=== PATIENT | male | born 1960 | race African-American/Black ===

== ENCOUNTER 2018-04-08 11:58 | Inpatient (IN) | payer MEDICAID ==
[~2018-04-08] VITALS: Ht 195.6 cm; Wt 89.8 kg
[2018-04-08] MEDS ORDERED: ONDANSETRON HCL 4MG/2ML INJ IV STA (12:13)
[2018-04-08] MEDS ORDERED: MORPHINE SULFATE 4 MG/ML CPJ (NOT FOR IM USE) IV STA (12:13)
[2018-04-08 13:25] LABS: MEAN CORPUSCULAR HEMOGLOBIN 30.4 pg (28.0-32.0); MEAN CORPUSCULAR VOLUME 91.3 fL (80.0-94.0); MEAN PLATELET VOLUME 7.6 fl (7.4-10.4); PLATELET 340 x1000/uL (130-400); RED BLOOD CELL COUNT 4.92 mill/uL (4.7-6.1); RED CELL DISTRIBUTION WIDTH 14.2 % (11.6-14.6)
[2018-04-08 13:32] LABS: CHLORIDE 101 mEq/L (98-107)
[2018-04-08 13:33] LABS: PROTHROMBIN TIME 9.9 sec (9.1-11.1)
[2018-04-08 14:13] LABS: PLATELET ESTIMATE NORMAL
[2018-04-08 14:30] LABS: CLARITY URINE CLOUDY (CLEAR); COLOR URINE YELLOW (YELLOW); KETONES URINE NEGATIVE (NEGATIVE); LEUKOCYTE ESTERASE URINE NEGATIVE (NEGATIVE); NITRITE URINE NEGATIVE (NEGATIVE); OCCULT BLOOD URINE 1+ (NEGATIVE); PROTEIN URINE 1+ (NEGATIVE); SPECIFIC GRAVITY URINE 1.021 (1.005-1.030); UROBILINOGEN URINE 0.2 E.U./dL (0.2-1.0)
[2018-04-08] MEDS ORDERED: KETOROLAC 30MG/ML VIAL IV NR (15:45)
[2018-04-08 21:00] VITALS: BP 147/91
[2018-04-08] MEDS ORDERED: BISACODYL 10MG SUPP PR PRN (21:30)
[2018-04-08] MEDS ORDERED: HYDROMORPHONE HCL/PF 2MG/ML CPJ IV PRN (21:30)
[2018-04-08] MEDS ORDERED: ACETAMINOPHEN 325MG TABLET PO PRN (21:30)
[2018-04-08] MEDS ORDERED: BISACODYL 10MG SUPP PR NR (21:30)
[2018-04-08] MEDS ORDERED: ONDANSETRON HCL 4MG/2ML INJ IV PRN (21:45)
[2018-04-08] MEDS ORDERED: MORPHINE SULFATE 2 MG/ML CPJ (NOT FOR IM USE) IV PRN (21:45)
[2018-04-08] MEDS: ONDANSETRON HCL 4MG/2ML INJ IV PRN (22:07)
[2018-04-08] MEDS: HYDROMORPHONE HCL/PF 2MG/ML CPJ IV PRN (22:07)
[2018-04-08] MEDS: PANTOPRAZOLE SODIUM 40 MG/VIAL IV SCH (22:57)
[2018-04-08] MEDS ORDERED: NA PHOS,M-B/NA PHOS,DI-BA ENEMA 118ML PR NR (23:00)
[2018-04-08] MEDS: DEXT 5%/0.9% NACL 1,000 ML IV SCH (23:11)
[2018-04-08] MEDS: LEVOFLOXACIN 500MG PREMIX 100 ML IV SCH (23:12)
[2018-04-08] MEDS ORDERED: DEXT 5%/0.45% NACL KCL 20MEQ/L 1,000 ML IV SCH (23:30)
[2018-04-09] VITALS: BP 136/86
[2018-04-09] MEDS: PIPERACILLIN/TAZ 3.375G PREMIX 50 ML IV SCH ×3 (00:28→16:42)
[2018-04-09] MEDS ORDERED: ASPI-1159 PO (00:34)
[2018-04-09 04:00] VITALS: BP 121/78
[2018-04-09] MEDS: HYDROMORPHONE HCL/PF 2MG/ML CPJ IV PRN ×3 (04:55→19:33)
[2018-04-09 06:22] LABS: BASOPHILS % 0.3 % (0.0-2.0); EOSINOPHILS % 0.9 % (0.0-5.0); HEMATOCRIT. 42.6 % (42.0-52.0); LYMPHOCYTES % 9.8 % (20.0-50.0); MEAN CORPUSCULAR HEMOGLOBIN 30.2 pg (28.0-32.0); MEAN CORPUSCULAR VOLUME 91.7 fL (80.0-94.0); MEAN PLATELET VOLUME 7.3 fl (7.4-10.4); MONOCYTES % 12.2 % (2.0-8.0); NEUTROPHILS % 76.8 % (40.0-76.0); PLATELET 361 x1000/uL (130-400); RED BLOOD CELL COUNT 4.65 mill/uL (4.7-6.1); RED CELL DISTRIBUTION WIDTH 14.2 % (11.6-14.6)
[2018-04-09 06:33] LABS: CHLORIDE 100 mEq/L (98-107)
[2018-04-09 08:00] VITALS: BP 112/69
[2018-04-09] MEDS: PANTOPRAZOLE SODIUM 40 MG/VIAL IV SCH (08:33)
[2018-04-09] MEDS: ENOXAPARIN 40MG/0.4ML SYR SUBCUT SCH (08:37)
[2018-04-09 12:00] VITALS: BP 122/69
[2018-04-09] MEDS ORDERED: NA PHOS,M-B/NA PHOS,DI-BA ENEMA 118ML PR NR (15:45)
[2018-04-09 16:00] VITALS: BP 119/78
[2018-04-09] MEDS: DEXT 5%/0.9% NACL 1,000 ML IV SCH (16:45)
[2018-04-09 19:31] VITALS: BP 130/93
[2018-04-10] VITALS: BP 128/87
[2018-04-10] MEDS: PIPERACILLIN/TAZ 3.375G PREMIX 50 ML IV SCH ×3 (00:18→18:34)
[2018-04-10] MEDS: HYDROMORPHONE HCL/PF 2MG/ML CPJ IV PRN ×4 (00:29→22:35)
[2018-04-10] MEDS: LEVOFLOXACIN 500MG PREMIX 100 ML IV SCH (01:27)
[2018-04-10 04:00] VITALS: BP 128/80
[2018-04-10] MEDS: DEXT 5%/0.9% NACL 1,000 ML IV SCH ×2 (07:05→15:39)
[2018-04-10 08:21] LABS: BASOPHILS % 0.4 % (0.0-2.0); HEMATOCRIT. 42.3 % (42.0-52.0); HEMOGLOBIN. 13.9 g/dL (14.0-18.0); LYMPHOCYTES % 10.3 % (20.0-50.0); MEAN CORPUSCULAR HEMOGLOBIN 30.4 pg (28.0-32.0); MEAN CORPUSCULAR VOLUME 92.2 fL (80.0-94.0); MEAN PLATELET VOLUME 7.6 fl (7.4-10.4); NEUTROPHILS % 75.3 % (40.0-76.0); PLATELET 350 x1000/uL (130-400); RED BLOOD CELL COUNT 4.58 mill/uL (4.7-6.1); RED CELL DISTRIBUTION WIDTH 14.2 % (11.6-14.6)
[2018-04-10 09:28] LABS: CHLORIDE 102 mEq/L (98-107)
[2018-04-10] MEDS: PANTOPRAZOLE SODIUM 40 MG/VIAL IV SCH ×2 (09:32→18:35)
[2018-04-10] MEDS: ENOXAPARIN 40MG/0.4ML SYR SUBCUT SCH (09:34)
[2018-04-10 10:45] VITALS: BP 124/65
[2018-04-10] MEDS ORDERED: NA PHOS,M-B/NA PHOS,DI-BA ENEMA 118ML PR NR (18:00)
[2018-04-10 18:36] LABS: HEMATOCRIT 38.8 % (42.0-52.0)
[2018-04-10 20:00] VITALS: BP 134/79
[2018-04-10 20:13] LABS: INR 1.1; PARTIAL THROMBOPLASTIN TIME 32.1 sec (23.4-31.0); PROTHROMBIN TIME 11.1 sec (9.1-11.1)
[2018-04-10 21:09] LABS: HEMATOCRIT 40.1 % (42.0-52.0); HEMOGLOBIN 13.4 g/dL (14.0-18.0)
[2018-04-10] MEDS: ONDANSETRON HCL 4MG/2ML INJ IV PRN (22:34)
[2018-04-11] VITALS (7 sets, daily range): BP systolic 118–174; BP diastolic 70–99
[2018-04-11] MEDS: PIPERACILLIN/TAZ 3.375G PREMIX 50 ML IV SCH ×4 (01:01→23:47)
[2018-04-11] MEDS: LEVOFLOXACIN 500MG PREMIX 100 ML IV SCH (01:07)
[2018-04-11] MEDS: ONDANSETRON HCL 4MG/2ML INJ IV PRN (06:36)
[2018-04-11] MEDS: HYDROMORPHONE HCL/PF 2MG/ML CPJ IV PRN ×2 (06:37→23:54)
[2018-04-11] MEDS: DEXT 5%/0.9% NACL 1,000 ML IV SCH (06:38)
[2018-04-11 07:32] LABS: HEMATOCRIT 36.7 % (42.0-52.0); HEMOGLOBIN 12.3 g/dL (14.0-18.0); MEAN CORPUSCULAR HEMOGLOBIN 30.7 pg (28.0-32.0); MEAN CORPUSCULAR VOLUME 91.4 fL (80.0-94.0); PLATELET 316 x1000/uL (130-400); RED BLOOD CELL COUNT 4.02 mill/uL (4.7-6.1); RED CELL DISTRIBUTION WIDTH 13.9 % (11.6-14.6)
[2018-04-11 07:49] LABS: CHLORIDE 107 mEq/L (98-107)
[2018-04-11] MEDS: PANTOPRAZOLE SODIUM 40 MG/VIAL IV SCH ×2 (09:22→17:25)
[2018-04-12] MEDS: LEVOFLOXACIN 500MG PREMIX 100 ML IV SCH ×2 (00:32→23:20)
[2018-04-12 04:00] VITALS: BP 137/89
[2018-04-12 07:44] LABS: HEMATOCRIT 35.2 % (42.0-52.0); HEMOGLOBIN 11.8 g/dL (14.0-18.0); MEAN CORPUSCULAR HEMOGLOBIN 30.7 pg (28.0-32.0); MEAN CORPUSCULAR VOLUME 91.2 fL (80.0-94.0); PLATELET 320 x1000/uL (130-400); RED BLOOD CELL COUNT 3.86 mill/uL (4.7-6.1); RED CELL DISTRIBUTION WIDTH 13.6 % (11.6-14.6)
[2018-04-12 08:00] VITALS: BP 156/77
[2018-04-12] MEDS: PIPERACILLIN/TAZ 3.375G PREMIX 50 ML IV SCH ×3 (08:00→23:20)
[2018-04-12 08:02] LABS: CHLORIDE 106 mEq/L (98-107)
[2018-04-12] MEDS: PANTOPRAZOLE SODIUM 40 MG/VIAL IV SCH ×2 (09:00→19:40)
[2018-04-12] MEDS: DEXT 5%/0.9% NACL 1,000 ML IV SCH ×2 (09:05→23:28)
[2018-04-12] MEDS ORDERED: DIATR MEGLU/DIATRIZOATE SOLN 120ML ONE (09:17)
[2018-04-12 12:00] VITALS: BP 137/73
[2018-04-12 16:00] VITALS: BP 153/95
[2018-04-12 20:00] VITALS: BP 120/69
[2018-04-12] MEDS ORDERED: HYDRALAZINE 20MG/ML VIAL IV PRN (20:15)
[2018-04-12] MEDS ORDERED: DIPHENHYDRAMINE 50MG/ML VIAL IV PRN (20:15)
[2018-04-12] MEDS ORDERED: HYDROMORPHONE HCL/PF 2MG/ML CPJ IV PRN (21:48)
[2018-04-13 00:13] VITALS: BP 135/67
[2018-04-13 04:00] VITALS: BP 148/71
[2018-04-13 08:00] VITALS: BP 150/84
[2018-04-13 09:12] LABS: HEMATOCRIT 37.6 % (42.0-52.0); HEMOGLOBIN 12.3 g/dL (14.0-18.0); MEAN CORPUSCULAR HEMOGLOBIN 30.1 pg (28.0-32.0); MEAN CORPUSCULAR VOLUME 91.7 fL (80.0-94.0); PLATELET 336 x1000/uL (130-400); RED CELL DISTRIBUTION WIDTH 13.8 % (11.6-14.6)
[2018-04-13 09:20] LABS: CHLORIDE 104 mEq/L (98-107)
[2018-04-13] MEDS: PANTOPRAZOLE SODIUM 40 MG/VIAL IV SCH ×2 (10:42→17:00)
[2018-04-13] MEDS: PIPERACILLIN/TAZ 3.375G PREMIX 50 ML IV SCH ×2 (10:42→16:00)
[2018-04-13 12:00] VITALS: BP 123/77
[2018-04-13 16:00] VITALS: BP 127/72
[2018-04-13] MEDS: DEXT 5%/0.9% NACL 1,000 ML IV SCH (18:25)
[2018-04-13 19:55] VITALS: BP 142/84
== END 2018-04-13 20:57 | disposition home or self-care (01) | DRG 252 ==
LOC: ER 11:58 → 7WST 13:29 → ENRESERV 19:40
PROVIDERS: ADMIT Internal Medicine; ATTEND Internal Medicine
PROC: 0D9670Z Drainage of Stomach with Drainage Device, Via Natural or Artificial Opening (ICD-10-PCS; principal; 2018-04-09)
DX: K91.30 Postprocedural intestinal obstruction, unspecified as to partial versus complete (principal); K29.61 Other gastritis with bleeding; E44.1 Mild protein-calorie malnutrition; I10 Essential (primary) hypertension; J44.9 Chronic obstructive pulmonary disease, unspecified; D72.829 Elevated white blood cell count, unspecified; F17.210 Nicotine dependence, cigarettes, uncomplicated; Z79.82 Long term (current) use of aspirin; Y83.8 Other surgical procedures as the cause of abnormal reaction of the patient, or of later complication, without mention of misadventure at the time of the procedure
CPT/HCPCS: 36415; 71045; 74018; 74021; 74176; 74250; 80048; 84443; 85014; 85018; 85027; 96374; 96375; 99285; C9113; J1170; J1650; J1885; J1956; J2270; J2405; J2543; J7042; Q9963

== ENCOUNTER 2018-08-28 18:22 | Inpatient (IN) | payer MEDICAID ==
[~2018-08-28] VITALS: Ht 195.6 cm; Wt 95.3 kg
[~2018-08-28 18:22] MED LIST: ASPI-1159 PO
[2018-08-29] MEDS ORDERED: SODIUM CHLORIDE 0.9% 1,000 ML IV ONE (00:33)
[2018-08-29 01:00] LABS: CHLORIDE 96 mEq/L (98-107)
[2018-08-29 01:03] LABS: PARTIAL THROMBOPLASTIN TIME 24.3 sec (23.4-31.0)
[2018-08-29 01:05] LABS: BASOPHILS % 0.4 % (0.0-2.0); EOSINOPHILS % 1.1 % (0.0-5.0); HEMATOCRIT. 47.3 % (42.0-52.0); HEMOGLOBIN. 15.9 g/dL (14.0-18.0); MEAN CORPUSCULAR HEMOGLOBIN 30.4 pg (28.0-32.0); MEAN CORPUSCULAR VOLUME 90.4 fL (80.0-94.0); MEAN PLATELET VOLUME 7.7 fl (7.4-10.4); NEUTROPHILS % 82.5 % (40.0-76.0); PLATELET 344 x1000/uL (130-400); RED BLOOD CELL COUNT 5.23 mill/uL (4.7-6.1); RED CELL DISTRIBUTION WIDTH 14.4 % (11.6-14.6)
[2018-08-29] MEDS ORDERED: MORPHINE SULFATE 4 MG/ML CPJ (NOT FOR IM USE) IV STA (01:41)
[2018-08-29] MEDS ORDERED: ONDANSETRON HCL 4MG/2ML INJ IV STA (01:41)
[2018-08-29 03:52] LABS: CLARITY URINE CLEAR (CLEAR); COLOR URINE AMBER (YELLOW); KETONES URINE 1+ (NEGATIVE); LEUKOCYTE ESTERASE URINE NEGATIVE (NEGATIVE); NITRITE URINE NEGATIVE (NEGATIVE); OCCULT BLOOD URINE 2+ (NEGATIVE); PH URINE 5.5 (4.5-8.0); PROTEIN URINE 2+ (NEGATIVE); SPECIFIC GRAVITY URINE 1.031 (1.005-1.030); UROBILINOGEN URINE 0.2 E.U./dL (0.2-1.0)
[2018-08-29] MEDS ORDERED: ONDANSETRON HCL 4MG/2ML INJ IV ONE (04:15)
[2018-08-29] MEDS ORDERED: MORPHINE SULFATE 4 MG/ML CPJ (NOT FOR IM USE) IV ONE (04:15)
[2018-08-29 08:00] VITALS: BP 156/96
[2018-08-29 09:30] VITALS: BP 156/98
[2018-08-29 12:00] VITALS: BP 136/87
[2018-08-29] MEDS ORDERED: MORPHINE SULFATE 4 MG/ML CPJ (NOT FOR IM USE) IV SCH (12:15)
[2018-08-29] MEDS ORDERED: ONDANSETRON HCL 4MG/2ML INJ IV PRN (13:15)
[2018-08-29] MEDS: DEXT 5%/0.45% NACL 1000ML 1,000 ML IV SCH (13:15)
[2018-08-29] MEDS ORDERED: ACETAMINOPHEN 325MG TABLET PO PRN (13:15)
[2018-08-29] MEDS ORDERED: HYDRALAZINE 20MG/ML VIAL IV PRN (13:15)
[2018-08-29] MEDS ORDERED: IPRATROPIUM/ALBUTEROL 0.5-3(2.5)MG/3ML NEB INH PRN (13:15)
[2018-08-29] MEDS ORDERED: HYDRALAZINE 10 MG in SODIUM CHLORIDE 0.9% 49.5 ML IV PRN (13:30)
[2018-08-29 14:13] LABS: *AMPHETAMINES SCREEN URINE NEGATIVE (NEGATIVE); *BARBITURATES SCREEN URINE NEGATIVE (NEGATIVE); *BENZODIAZEPINES SCREEN URINE NEGATIVE (NEGATIVE); *COCAINE SCREEN URINE NEGATIVE (NEGATIVE)
[2018-08-29 14:14] LABS: CANNABINOID URINE SCREEN NEGATIVE (NEGATIVE); METHADONE URINE SCREEN NEGATIVE (NEGATIVE); OPIATES URINE SCREEN PRESUMTIVE POSITIVE (NEGATIVE); PHENCYCLIDINE URINE SCREEN NEGATIVE (NEGATIVE)
[2018-08-29] MEDS: ENOXAPARIN 40MG/0.4ML SYR SUBCUT SCH (14:21)
[2018-08-29] MEDS: PANTOPRAZOLE SODIUM 40 MG/VIAL IV SCH (14:22)
[2018-08-29] MEDS: METRONIDAZOLE 500 MG PREMIX 100 ML IV SCH ×2 (14:22→21:44)
[2018-08-29] MEDS: LEVOFLOXACIN 500MG PREMIX 100 ML IV SCH (15:52)
[2018-08-29 16:00] VITALS: BP 131/78
[2018-08-29] MEDS: MORPHINE SULFATE 4 MG/ML CPJ (NOT FOR IM USE) IV PRN ×2 (18:28→23:44)
[2018-08-29 20:00] VITALS: BP 120/79
[2018-08-30] VITALS: BP 115/83
[2018-08-30 04:00] VITALS: BP 120/83
[2018-08-30] MEDS: DEXT 5%/0.45% NACL 1000ML 1,000 ML IV SCH ×2 (06:22→23:26)
[2018-08-30] MEDS: METRONIDAZOLE 500 MG PREMIX 100 ML IV SCH ×3 (06:23→23:03)
[2018-08-30 06:25] LABS: BASOPHILS % 0.5 % (0.0-2.0); EOSINOPHILS % 2.6 % (0.0-5.0); HEMATOCRIT. 38.7 % (42.0-52.0); LYMPHOCYTES % 24.8 % (20.0-50.0); MEAN CORPUSCULAR HEMOGLOBIN 30.3 pg (28.0-32.0); MEAN CORPUSCULAR VOLUME 90.3 fL (80.0-94.0); MEAN PLATELET VOLUME 7.7 fl (7.4-10.4); MONOCYTES % 12.5 % (2.0-8.0); NEUTROPHILS % 59.6 % (40.0-76.0); PLATELET 310 x1000/uL (130-400); RED BLOOD CELL COUNT 4.28 mill/uL (4.7-6.1); RED CELL DISTRIBUTION WIDTH 14.3 % (11.6-14.6)
[2018-08-30] MEDS: MORPHINE SULFATE 4 MG/ML CPJ (NOT FOR IM USE) IV PRN ×4 (06:28→23:04)
[2018-08-30 06:32] LABS: CHLORIDE 102 mEq/L (98-107)
[2018-08-30 06:40] LABS: HDL CHOLESTEROL 53 mg/dL (40-59)
[2018-08-30 06:44] LABS: LDL CHOLESTEROL 64 mg/dL (5-100)
[2018-08-30 08:00] VITALS: BP 113/77
[2018-08-30] MEDS: PANTOPRAZOLE SODIUM 40 MG/VIAL IV SCH (08:48)
[2018-08-30] MEDS: ENOXAPARIN 40MG/0.4ML SYR SUBCUT SCH (08:49)
[2018-08-30 12:00] VITALS: BP 118/76
[2018-08-30 15:55] VITALS: BP 118/76
[2018-08-30] MEDS: LEVOFLOXACIN 500MG PREMIX 100 ML IV SCH (16:36)
[2018-08-30 20:00] VITALS: BP 144/90
[2018-08-31] VITALS: BP 125/84
[2018-08-31] MEDS: MORPHINE SULFATE 4 MG/ML CPJ (NOT FOR IM USE) IV PRN ×4 (03:37→20:41)
[2018-08-31 04:00] VITALS: BP 123/87
[2018-08-31] MEDS: METRONIDAZOLE 500 MG PREMIX 100 ML IV SCH ×3 (05:32→20:55)
[2018-08-31 06:28] LABS: HEMATOCRIT 37.9 % (42.0-52.0); HEMOGLOBIN 12.8 g/dL (14.0-18.0); MEAN CORPUSCULAR HEMOGLOBIN 30.4 pg (28.0-32.0); MEAN CORPUSCULAR VOLUME 90.2 fL (80.0-94.0); PLATELET 299 x1000/uL (130-400); RED CELL DISTRIBUTION WIDTH 14.4 % (11.6-14.6)
[2018-08-31 06:52] LABS: CHLORIDE 100 mEq/L (98-107)
[2018-08-31 08:00] VITALS: BP 136/89
[2018-08-31] MEDS: PANTOPRAZOLE SODIUM 40 MG/VIAL IV SCH (09:06)
[2018-08-31] MEDS: ENOXAPARIN 40MG/0.4ML SYR SUBCUT SCH (09:06)
[2018-08-31] MEDS ORDERED: KCL 20MEQ/100ML PREMIX 100 ML IV SCH ×2 (10:00→13:00)
[2018-08-31 12:00] VITALS: BP 144/86
[2018-08-31] MEDS: LEVOFLOXACIN 500MG PREMIX 100 ML IV SCH (15:00)
[2018-08-31 16:21] VITALS: BP 130/86
[2018-08-31 20:00] VITALS: BP 124/98
[2018-08-31] MEDS: DEXT 5%/0.45% NACL 1000ML 1,000 ML IV SCH (20:47)
[2018-09-01] VITALS: BP 154/85
[2018-09-01] MEDS: MORPHINE SULFATE 4 MG/ML CPJ (NOT FOR IM USE) IV PRN ×5 (01:07→20:25)
[2018-09-01 04:00] VITALS: BP 144/93
[2018-09-01] MEDS: METRONIDAZOLE 500 MG PREMIX 100 ML IV SCH ×3 (05:21→21:14)
[2018-09-01 06:05] LABS: HEMATOCRIT 38.2 % (42.0-52.0); HEMOGLOBIN 12.8 g/dL (14.0-18.0); MEAN CORPUSCULAR HEMOGLOBIN 30.3 pg (28.0-32.0); MEAN CORPUSCULAR VOLUME 90.4 fL (80.0-94.0); PLATELET 300 x1000/uL (130-400); RED BLOOD CELL COUNT 4.22 mill/uL (4.7-6.1)
[2018-09-01 06:48] LABS: CHLORIDE 99 mEq/L (98-107)
[2018-09-01 08:00] VITALS: BP 129/84
[2018-09-01] MEDS: PANTOPRAZOLE SODIUM 40 MG/VIAL IV SCH (09:34)
[2018-09-01] MEDS: ENOXAPARIN 40MG/0.4ML SYR SUBCUT SCH (09:46)
[2018-09-01 12:00] VITALS: BP 145/90
[2018-09-01 16:00] VITALS: BP 145/93
[2018-09-01] MEDS: LEVOFLOXACIN 500MG PREMIX 100 ML IV SCH (18:13)
[2018-09-01 20:00] VITALS: BP 145/94
[2018-09-01] MEDS: DEXT 5%/0.45% NACL 1000ML 1,000 ML IV SCH (21:13)
[2018-09-02] VITALS: BP 152/95
[2018-09-02] MEDS: MORPHINE SULFATE 4 MG/ML CPJ (NOT FOR IM USE) IV PRN ×2 (01:13→05:43)
[2018-09-02 04:00] VITALS: BP 124/78
[2018-09-02] MEDS: METRONIDAZOLE 500 MG PREMIX 100 ML IV SCH ×3 (05:29→22:10)
[2018-09-02 07:02] LABS: HEMATOCRIT 34.2 % (42.0-52.0); HEMOGLOBIN 11.4 g/dL (14.0-18.0); MEAN CORPUSCULAR HEMOGLOBIN 30.1 pg (28.0-32.0); MEAN CORPUSCULAR VOLUME 90.3 fL (80.0-94.0); PLATELET 276 x1000/uL (130-400); RED BLOOD CELL COUNT 3.79 mill/uL (4.7-6.1); RED CELL DISTRIBUTION WIDTH 13.8 % (11.6-14.6)
[2018-09-02 07:18] LABS: CHLORIDE 100 mEq/L (98-107)
[2018-09-02 08:00] VITALS: BP 131/78
[2018-09-02] MEDS ORDERED: POTASSIUM CHLORIDE 20MEQ TABLET SR PO NR (09:00)
[2018-09-02] MEDS: ENOXAPARIN 40MG/0.4ML SYR SUBCUT SCH (09:35)
[2018-09-02] MEDS: PANTOPRAZOLE SODIUM 40 MG/VIAL IV SCH (09:35)
[2018-09-02 12:00] VITALS: BP 128/76
[2018-09-02] MEDS: LEVOFLOXACIN 500MG PREMIX 100 ML IV SCH ×2 (14:38→15:16)
[2018-09-02 16:00] VITALS: BP 117/71
[2018-09-02 20:00] VITALS: BP 136/78
[2018-09-02] MEDS: DEXT 5%/0.45% NACL 1000ML 1,000 ML IV SCH (22:10)
[2018-09-03] VITALS: BP 123/76
[2018-09-03 04:00] VITALS: BP 131/76
[2018-09-03] MEDS: METRONIDAZOLE 500 MG PREMIX 100 ML IV SCH ×2 (06:02→12:56)
[2018-09-03 07:46] LABS: HEMATOCRIT 34.7 % (42.0-52.0); HEMOGLOBIN 11.6 g/dL (14.0-18.0); MEAN CORPUSCULAR HEMOGLOBIN 30.2 pg (28.0-32.0); MEAN CORPUSCULAR VOLUME 90.3 fL (80.0-94.0); PLATELET 279 x1000/uL (130-400); RED BLOOD CELL COUNT 3.84 mill/uL (4.7-6.1)
[2018-09-03 08:00] VITALS: BP 122/71
[2018-09-03 08:02] LABS: CHLORIDE 100 mEq/L (98-107)
[2018-09-03] MEDS: PANTOPRAZOLE SODIUM 40 MG/VIAL IV SCH (09:10)
[2018-09-03] MEDS: ENOXAPARIN 40MG/0.4ML SYR SUBCUT SCH (09:10)
[2018-09-03] MEDS ORDERED: POTASSIUM CHLORIDE 20MEQ TABLET SR PO SCH (10:30)
[2018-09-03 12:00] VITALS: BP 115/65
[2018-09-03] MEDS: LEVOFLOXACIN 500MG PREMIX 100 ML IV SCH (14:07)
[2018-09-03 15:27] VITALS: BP 115/65
== END 2018-09-03 16:14 | disposition home or self-care (01) | DRG 247 ==
LOC: ER 18:35 → 6EST 08-29 03:48 → EDBEDREQSVC 08-29 04:39 → EDBEDREQ 08-29 04:39 → EDBEDREQTM 08-29 04:39 → ENRESERV 08-29 07:22
PROVIDERS: ADMIT Internal Medicine; ATTEND Internal Medicine
PROC: 0D9670Z Drainage of Stomach with Drainage Device, Via Natural or Artificial Opening (ICD-10-PCS; principal; 2018-08-30)
DX: K56.50 Intestinal adhesions [bands], unspecified as to partial versus complete obstruction (principal); E87.1 Hypo-osmolality and hyponatremia; D64.9 Anemia, unspecified; E87.6 Hypokalemia; I10 Essential (primary) hypertension; D72.829 Elevated white blood cell count, unspecified; R80.9 Proteinuria, unspecified; K44.9 Diaphragmatic hernia without obstruction or gangrene; R74.0 Nonspecific elevation of levels of transaminase and lactic acid dehydrogenase [LDH]; R73.9 Hyperglycemia, unspecified
CPT/HCPCS: 36415; 71045; 74018; 74176; 80048; 80061; 80305; 83036; 84439; 84443; 85027; 93005; 96374; 96375; 99285; C9113; J1650; J1956; J2270; J2405; J3480; J3490; J7030